=== PATIENT | female | born 2000 | race Two or more races ===

== ENCOUNTER 2021-06-01 11:07 | Emergency (ER) | payer OTHER ==
[~2021-06-01] VITALS: Ht 157.5 cm; Wt 58.2 kg
[2021-06-01] MEDS ORDERED: NUVAMIS2 PV (11:23)
[2021-06-01 14:06] VITALS: BP 131/78
== END 2021-06-01 14:07 | disposition home or self-care (01) ==
LOC: M ED 11:07
DX: J06.9 Acute upper respiratory infection, unspecified (principal)